=== PATIENT | female | born 1985 | race African-American/Black ===

== ENCOUNTER 2018-01-21 10:43 | Emergency (ER) | payer MEDICAID ==
[2018-01-21 10:52] VITALS: RESP 16
--- NOTE | 2018-01-21 11:39 | EDPHY ---
H & P Time Seen by Provider: 01/21/18 11:28 HPI/ROS: CHIEF COMPLAINT: Sore throat x3 days, adenopathy HISTORY OF PRESENT ILLNESS: 32-year-old immunocompetent female complaining of 3 days of sore throat, adenopathy, fever. No change in voice. No URI symptoms. No cough. No nuchal rigidity. No urinary abnormality. No skin rash. PRIMARY CARE PROVIDER: REVIEW OF SYSTEMS: A ten point review of systems was performed and is negative with the exception of the items mentioned in the HPI PAST MEDICAL & SURGICAL HISTORY: No pertinent medical or surgical history SOCIAL HISTORY: Nonsmoker PHYSICAL EXAM (Prior to examination, patient consented to physical exam, hands were washed and my usual and customary physical exam procedures followed) 1) GENERAL: Well-developed, well-nourished, alert and oriented. Appears to be in no acute distress. 2) HEAD: Normocephalic, atraumatic 3) HEENT: Pupils equal, round, reactive to light bilaterally. Sclera anicteric. Nasopharynx, oropharynx, clear, no lesions. Bilateral tonsils are enlarged with white exudate. Symmetrical. No pointing of the uvula. No hot potato voice. Ears bilaterally with normal tympanic membranes. 4) NECK: Full range of motion, no meningeal signs. Positive adenopathy 5) LUNGS: Clear auscultation bilaterally, no wheezes, no rhonchi, no retractions. 6) HEART: Regular rate and rhythm, no murmur, no heave, no gallop. 7) ABDOMEN: No guarding, no rebound, no focal tenderness, negative McBurney's, negative Courtney's, negative Rovsing's, negative peritoneal sign, 8) MUSCULOSKELETAL: Moving all extremities, no focal areas of tenderness, no obvious trauma. No peripheral edema or discoloration. 9) BACK: No CVA tenderness, no midline vertebral tenderness, no fluctuance, no step-off, no obvious trauma, no visual or palpable abnormality. 10) SKIN: No rash, no petechiae. 11) Psychiatric: Patient is oriented X 3, there is no agitation. DIFFERENTIAL DIAGNOSIS: In no particular order including but not limited to strep pharyngitis, mononucleosis, viral URI, peritonsillar abscess Smoking Status: Never smoked Constitutional: Initial Vital Signs Temperature (C) 36.8 C 01/21/18 10:50 Heart Rate 86 01/21/18 10:50 Respiratory Rate 16 01/21/18 10:50 Blood Pressure 126/112 H 01/21/18 10:50 O2 Sat (%) 98 01/21/18 10:50 Allergies/Adverse Reactions: No Known Allergies Allergy (Unverified 01/21/18 10:49) Home Medications: Medication Instructions Recorded Ibuprofen 01/21/18 Penicillin V Potassium [Pen Vk] 500 mg PO Q6 10 Days tab 01/21/18 methylPREDNISolone [Medrol Dose 4 mg PO DAILY #1 ea 01/21/18 Cirilo] MDM/Departure - MDM ED Course/Re-evaluation: Doubt epiglottitis, doubt peritonsillar abscess, doubt meningitis. High clinical suspicion for strep pharyngitis given her presenting signs and symptoms. She had plan will be starting on antibiotics, Medrol Dosepak. No history of psychiatric illness or disease. She feels comfortable with this plan. All questions and concerns addressed by myself. Usual and customary discharge precautions instructions provided. Care of patient under supervision of [secondary] supervising physician Dr Baez. - Depart Disposition: Home, Routine, Self-Care Clinical Impression: Strep pharyngitis Condition: Good Instructions: Strep Throat (ED) Additional Instructions: Return to the ER immediately if you cannot swallow, have drooling, fevers, neck stiffness, cannot open your jaw, or any other symptoms that concern you. Prescriptions: methylPREDNISolone [Medrol Dose Cirilo] 4 mg PO DAILY #1 ea Penicillin V Potassium [Pen Vk] 500 mg PO Q6 10 Days tab Referrals: Nicol Liriano DO [Primary Care Provider] - As per Instructions
[2018-01-21 12:34] VITALS: BP 125/104; PULSE 85; TEMP 96.8; O2SAT 100
== END 2018-01-21 12:35 | disposition home or self-care (01) ==
DX: J02.0 Streptococcal pharyngitis (principal)